=== PATIENT | female | born 1970 | race Caucasian/White ===

== ENCOUNTER 2017-01-17 00:01 | Emergency (ER) | payer OTHER ==
[~2017-01-17] VITALS: Ht 167.6 cm; Wt 64.0 kg
[2017-01-17 00:08] VITALS: BP 152/96; PULSE 72; RESP 16; O2SAT 99
[2017-01-17 01:03] LABS: BASOPHILS % (AUTO) 0.7 % (0-3); EOSINOPHILS % (AUTO) 1.1 % (0-5); MONOCYTES % (AUTO) 11.7 % (4-12); Mean Corpuscular Volume 91.6 fL (81-100); NEUTROPHILS % (AUTO) 62.7 % (40-74); Platelet Count 300 bil/L (150-400)
[2017-01-17 01:30] LABS: TROPONIN T 0.01 ug/L (0.0-0.011)
--- NOTE | 2017-01-17 02:37 | ED.REPORT ---
HPI-Dyspnea / Wheezing Date of Service January 17, 2017 ED Provider: Jonathan Dobbs MD Patient is an 46-year-old female without past medical history who presents to [facility] Emergency Department complaining of intermittent shortness of breath, feeling of being overwhelmed and dizziness that started 2 days ago. She describes the first episode of feeling short of breath while she was sitting on the couch reading a book 2 days ago. It lasted for a few minutes. The second episode happened tonight. Patient lives in [place] and does not have a hospital nearby so she asked her friends to drive her to the hospital. Patient states she has a common cold for about a week. She still has sore throat and occasional dry cough, but it is getting better. She denies chills, fever, chest pain, heart palpitations, nausea, vomiting, diarrhea, depression. She reports [place] back home from [place]. She denies history of DVT or previous PE. Nursing Notes Stated Complaint: SHORTNESS OF BREATH Chief Complaint: Respiratory Complaints Nursing Notes Reviewed: Yes Allergies: Coded Allergies: No Known Allergies (Unverified , 01/17/17) Scheduled PRN Hydroxyzine Pamoate (HydrOXYzine Pamoate) 25 Mg Capsule 25 MG PO HS PRN PRN For Insomnia General Time Seen by MD: 01:46 Chief Complaint Shortness of breath Risk Factors Patient has been recently on the plane flying from [place]. Past Medical History None Past Surgical History None Smoking History Never Smoker Social History Alcohol Use: Denies alcohol use Drug Use: Denies drug use Other Social History: Lives alone Ambulatory Status Independent Review of Systems A comprehensive review of systems has been conducted with the patient and was found to be negative except what is mentioned in the history of present illness. Physical Exam Initial Vital Signs Vital Signs (First) Date Time Temp Pulse Resp B/P Pulse Ox O2 Delivery O2 Flow Rate FiO2 01/17/17 00:08 36.9 72 16 152/96 99 Room Air Initial VS: Reviewed, Vital signs abnormal Head / Eyes: Atraumatic, Normocephalic, PERRL ENT: Mucous membranes moist, Conjunctiva normal, No scleral icterus Abdomen / GI: Soft, Non-tender, No guarding, No rebound, No distention Back: No CVA tenderness Lymphatic: No lymphadenopathy Extremities: Vascular intact, Neuro intact, No swelling, No tenderness Skin: Warm, Dry, No cyanosis Neurologic: Alert, Oriented, Nonfocal Psychiatric: Mood/affect normal, Behavior normal, Normal thought content Neck: Atraumatic, Non-tender Respiratory / Chest: Breath sounds NL, No respiratory distress, No rales, No rhonchi, No wheezing Cardiovascular: Heart rate NL, Regular rhythm Interpretation & Diagnostics Lab Results Interpretation Result Diagram: 01/17/17 0056 01/17/17 0056 Test 01/17/17 00:56 White Blood Count 8.9th/mm3 (3.8-10.1) Red Blood Count 4.66mil/mm3 (3.90-5.20) Hemoglobin 14.0g/dL (12.0-15.6) Hematocrit 42.7% (35.0-46.0) Mean Corpuscular Volume 91.6fL (81-100) Mean Corpuscular Hemoglobin 30.0pg (27.0-35.0) Mean Corpuscular Hemoglobin Concent 32.8% (32.0-37.0) Red Cell Distribution Width 12.9% (12.3-15.4) Platelet Count 300bil/L (150-400) Neutrophils (%) (Auto) 62.7% (40-74) Lymphocytes (%) (Auto) 23.7% (14-46) Monocytes (%) (Auto) 11.7% (4-12) Eosinophils (%) (Auto) 1.1% (0-5) Basophils (%) (Auto) 0.7% (0-3) D-Dimer < 0.50mg/L FEU (<0.50) Sodium Level 140mEq/L (134-144) Potassium Level 4.2mEq/L (3.5-5.2) Chloride Level 100mEq/L (97-108) Carbon Dioxide Level 23mmol/L (18-29) Blood Urea Nitrogen 13mg/dL (6-24) Creatinine 0.73mg/dL (0.57-1.00) Estimat Glomerular Filtration Rate 123mL/min (>59) Glucose Level 102mg/dL (60-99) Calcium Level 9.4mg/dL (8.5-10.1) Magnesium Level 2.0mg/dL (1.6-2.6) Total Bilirubin 0.4mg/dL (0.0-1.2) Aspartate Amino Transf (AST/SGOT) 13U/L (0-50) Alanine Aminotransferase (ALT/SGPT) 8U/L (0-32) Alkaline Phosphatase 62U/L (25-150) Troponin T 0.010ug/L (0.0-0.011) Total Protein 7.7g/dL (6.4-8.4) Albumin 4.4g/dL (3.4-5.0) Thyroid Stimulating Hormone (TSH) 2.050uIU/mL (0.450-4.500) Hold Parada Top Tube Received (Received) Lab values outside NL range: no clinical significance. Re-Eval/Medical Decision Med Decision/Clinical Course In summary, this is a healthy 46 year old female with history of recent travel by airplane who presented complaining of intermittent shortness of breath and anxiety. Blood work unremarkable, benign physical exam. Chest x-ray without cardiopulmonary disease. D-dimer is negative. At this point it is felt to be safe for the patient to be discharged home. We do not believe she has a life threatening condition. We had a detailed discussion with the patient about anxiety and how to cope with it. We decided to try Hydroxyzine and to see if patient will find it helpful. She was advised to follow up with her PCP within a week. Differential Diagnosis: Positive: Anxiety, Asthma, Bronchitis, Panic attack, Pulmonary embolism, Upper resp infection Discharge & Departure Impression: Primary Impression: Anxiety Additional Impression: Allergy Encounter type: initial encounter Qualified Code: T78.40XA - Allergy, unspecified, initial encounter Disposition: Home Discharge Condition Condition: Stable Patient Instructions: Anxiety in Adolescents (ED) Additional Instructions: Thank you for seeking care at emergency room today. It is difficult for us to make definitive diagnosis in the ED but we believe that you are experiencing anxiety and/or environmental allergy. Our primary goal today in the ED was to evaluate you for any life threatening conditions. Your evaluation is reassuring. Follow up with your PCP as soon as possible. We are sending you home with a prescription for hydroxyzine. Please try it when you feel anxious and short of breath again. See if you find it helpful. Try it first before bedtime or when you do not have to drive to see how your body will react to this. You should return to ED immediately if you experience chest pain, irregular heart palpitations, shortness of breath, fever, nausea, vomiting, diarrhea, weakness. Thank you for letting us partake in your care today. Referrals: Deven Maldonado MD (PCP) EDSupervising Provider for APC: Jonathan Dobbs MD Attending Statement The patient was seen and examined together with Dr. Jennifer Parada and I agree with the history, exam and plan as outlined in the note above. copies to: Solomon Barbour MD, Oksana S DO January 17, 2017 02:37 Jonathan Dobbs MD January 17, 2017 16:29
[2017-01-17] MEDS ORDERED: HYDR-3797 PO (04:33)
--- NOTE | 2017-01-17 07:34 | DRSVH ---
PROCEDURE: X-RAY CHEST, TWO VIEWS ([id number]) INDICATIONS: shortness of breath TECHNIQUE: 2 views of the chest were acquired. COMPARISON: None. FINDINGS: Surgical changes and devices: None. Lungs and pleura: No pleural effusions or pneumothorax. Lungs are clear. Mediastinum: Mediastinal contours are normal. Heart size is normal. Bones and chest wall: No suspicious bony abnormalities. Soft tissues appear unremarkable. IMPRESSION: No acute process. Dictated by: Belen Hay M.D. on 01/17/2017 at 7:32 Approved by: Belen Hay M.D. on 01/17/2017 at 7:32
== END 2017-01-17 04:53 | disposition home or self-care (01) ==
LOC: SED 00:01
DX: R06.02 Shortness of breath (principal); F41.9 Anxiety disorder, unspecified; T78.40XA Allergy, unspecified, initial encounter; R42 Dizziness and giddiness; X58.XXXA Exposure to other specified factors, initial encounter; Y93.89 Activity, other specified; Y99.8 Other external cause status; Y92.018 Other place in single-family (private) house as the place of occurrence of the external cause